=== PATIENT | male | born 1980 | race Caucasian/White ===

== ENCOUNTER 2020-03-30 14:29 | Emergency (ER) | payer OTHER, SELFPAY ==
[2020-03-30 14:48] VITALS: BP 147/67; PULSE 75; RESP 16; TEMP 36.9; O2SAT 96; BMI 26.1
[2020-03-30] MEDS: RABIES VACCINE (RABAVERT) 2.5 UNITS SYRINGE IM (15:42)
[2020-03-30] MEDS: RABIES IMMUNE GLOBULIN 300 UNIT/ML 5 ML VIAL 1996 UNIT IM (16:34)
[2020-03-30 17:22] VITALS: BP 133/82; PULSE 87; RESP 15; O2SAT 96
--- NOTE | 2020-03-30 23:05 | ED.ANIMALBIT ---
HPI - Animal Bite <BRANDON BaeP - Last Filed: 03/30/20 23:22> General Chief Complaint: Animal Bite Stated Complaint: bat exposure Time Seen by Provider: 03/30/20 14:34 Source: patient Mode of arrival: Ambulatory Limitations: no limitations History of Present Illness HPI narrative: This is a 39-year-old male, nonsmoker, who has no pertinent medical history presents to ED with his spouse and four children with chief complain of a bat exposure in the house with unknown injuries last night during sleep. He has not received rabies vaccination in the past. He was suggested prophylactic treatments for rabies according to [facility]. Initially the bat was discovered by his 6-year-old son flying around who was sleeping with him in a loft in a family cabin in [facility] and he was woken by his son. He denies waking up from a bite or scratches that he can recall. However, during exam, the patient had scant amount of active bleeding on right posterior calf with a puncture wound. He thinks this is from a mosquito bite and he had scratched. Patient denies fever, chills, nausea or vomiting. Related Data Home Medications Medication Instructions Recorded Confirmed dextroamphetamine-amphetamine 03/30/20 Allergies Allergy/AdvReac Type Severity Reaction Status Date / Time codeine Allergy Verified 03/30/20 14:48 Review of Systems <DENNIS Bae - Last Filed: 03/30/20 23:22> Review of Systems Narrative: General: Denies fever, chills, fatigue, malaise, sweats. HEENT: Denies sinus pain, ear pain, sore throat, difficulty swallowing, dizziness. Respiratory: Denies dyspnea, cough, wheezing, hemoptysis, sputum. Cardiovascular: Denies chest pain, palpitations, orthopnea, edema. Gastrointestinal: Denies nausea, vomiting, abdominal pain, diarrhea, constipation, melena. : Denies dysuria, frequency, incontinence, hematuria, urinary retention. Musculoskeletal: Denies weakness, joint pain or bony pain. Skin: See HPI Neurologic: Denies weakness, headache, numbness, change in speech, confusion, seizures, incoordination. Psychiatric: No concerning psychosocial issues. 12-point review of systems is negative except for those stated above. Patient History <DENNIS Bae - Last Filed: 03/30/20 23:22> Medical History ADHD (Acute) Surgical History History of abdominal surgery (Acute) Social History Smoking Status: Never smoker Smoking Status: Never smoker Substance Use Type: does not use Exam <DENNIS Bae - Last Filed: 03/30/20 23:22> Narrative Exam Narrative: General appearance: well developed, well nourished, in no acute distress. Head: normocephalic, atraumatic, no scalp lesions, non-tender. ENT: Hearing grossly intact. Nose without bleeding, purulent discharge. Airway patent. Neck/Thyroid: neck supple, full range of motion, no visible masses or meningeal signs. No JVD, non-tender without lymphadenopathy. Skin: one small puncture wound visualized in right posterior calf. no suspicious rashes, lesions over other visible areas. Warm and dry and appropriate color for ethnicity. Heart: no clubbing, no cyanosis, no edema. Lungs: Breathing even and unlabored. No stridor. No accessory muscles used. Able to speak in full sentences. Chest: normal shape and expansion. Abdomen: non-obese, non-distended. Neurologic: alert and oriented. Cognitive exam, [employer] and PNS grossly intact on informal exam. Psych: good eye contact, normal affect. Initial Vital Signs Initial Vital Signs: Vital Signs Temperature 98.5 F 03/30/20 14:48 Pulse Rate 75 03/30/20 14:48 Respiratory Rate 16 03/30/20 14:48 Blood Pressure 147/67 H 03/30/20 14:48 Pulse Oximetry 96 03/30/20 14:48 <Reanldo White MD - Last Filed: 03/31/20 08:32> Initial Vital Signs Initial Vital Signs: Vital Signs Temperature 98.5 F 03/30/20 14:48 Pulse Rate 75 03/30/20 14:48 Respiratory Rate 16 03/30/20 14:48 Blood Pressure 147/67 H 03/30/20 14:48 Pulse Oximetry 96 03/30/20 14:48 Scores <Freddy DENNIS Metzger - Last Filed: 03/30/20 23:22> GCS [place] coma scale eye opening: Spontaneous [place] coma scale verbal response: Orientated [place] coma scale motor response: Obey commands [place] coma scale total score: 15 Course <Freddy DENNIS Metzger - Last Filed: 03/30/20 23:22> Orders Ordered: Discontinued Medications Rabies Immune Globulin (Hyperrab) 1,996 unit IM NOW ONE Stop: 03/30/20 15:52 Last Admin: 03/30/20 16:34 Dose: 1,996 unit Documented by: HYUNAPO Rabies Vaccine (Rabavert) 2.5 units IM .ONCE ONE Stop: 03/30/20 15:03 Last Admin: 03/30/20 15:42 Dose: 2.5 units Documented by: CACHORRO Consultations Consultation #1: [facility] and it was advised to treat the patient and family with rabies immuno globulin and vaccination s/p bat exposure in the house during sleep in shared decision making. It was suggested to inform the patient of high cost of the medication and instructed to use to different site muscles and needles to prevent binding of medication effect. Time: 15:44 Vital Signs Vital signs: Vital Signs - 8 hr 03/30/20 17:22 Pulse Rate 87 Respiratory Rate 15 Blood Pressure 133/82 Pulse Oximetry 96 <Renaldo White MD - Last Filed: 03/31/20 08:32> Orders Ordered: Discontinued Medications Rabies Immune Globulin (Hyperrab) 1,996 unit IM NOW ONE Stop: 03/30/20 15:52 Last Admin: 03/30/20 16:34 Dose: 1,996 unit Documented by: JOSEO Rabies Vaccine (Rabavert) 2.5 units IM .ONCE ONE Stop: 03/30/20 15:03 Last Admin: 03/30/20 15:42 Dose: 2.5 units Documented by: CACHORRO Vital Signs Vital signs: Vital Signs - 8 hr 03/30/20 17:22 Pulse Rate 87 Respiratory Rate 15 Blood Pressure 133/82 Pulse Oximetry 96 MDM - Animal Bite <DENNIS Bae - Last Filed: 03/30/20 23:22> Differential Diagnosis Differential diagnosis: Likely other (possible bat bite, s/p exposure to bat) Medical Records Attestation: I reviewed the patient's medical records. MDM Narrative Medical decision making narrative: This is a 39-year-old male who has exposure to a bat and unknown bites or scratches from a bat during sleep last night. During exam, a small amount of fresh bleeding on right posterior calf. After patient's spouse contacted [facility], it was recommended for prophylaxis post rabies treatment after bat exposure. Patient contributed this to possible mosquito bite and scratch. Since it is unsure of bite from a bed, patient was medicated with rabies vaccination and immunoglobulin and half of the immunoglobin was was injected around the site. Patient was monitored post injection for 15 minutes plus in ED without any unusual reaction. The patient's spouse has been communicating with physician at [facility] to rabies vaccination for follow-up visits for family member. Patient informed he requires additional 3 more doses of rabies vaccination series on day 3, 7, 14 (Today day 0). Return precautions were discussed with patient and patient verbalized understanding and in agreement with treatment plan. Discharge Plan Departure Patient Disposition: Home Clinical Impression: Bat bite wound Discharge Date/Time: 03/30/20 17:30 Instructions: DI for Rabies Vaccine Activity Restrictions/Additional Instructions: You have been diagnosed with [bat exposure. I am not sure on your right calf is due to bat bite or other injury but we treated as bat bite at this time but injecting 1/2 of the immunoglobulin around the site along IM injection. You have received immunoglobulin for rabies and vaccination today. You need additional follow-up for with his vaccination on day 3, 7, 14.]. What to do: *Take your medications as directed. *Follow up with your primary care provider in Thursday for 2nd rabies vaccination. Let them know you were seen in the ED and that we asked you to be seen in follow up. *Return to ED if you have any new, worsening, or concerning symptoms, such as [chest pain, breathing difficulty, unable to tolerate fluids, high fever, seizure-like activities, or any acute concerns]. Prescriptions: No Action dextroamphetamine-amphetamine 15 mg tablet RF: 0
== END 2020-03-30 17:30 | disposition home or self-care (01) ==
PROVIDERS: Emergency Provider Nurse Practitioner Family
DX: Z20.3 Contact with and (suspected) exposure to rabies (principal); W55.81XA Bitten by other mammals, initial encounter; Z23 Encounter for immunization
CPT/HCPCS: 90375; 90471; 90675; 96372; 99283